=== PATIENT | female | born 1965 | race Caucasian/White ===

== ENCOUNTER → 2018-10-25 | Outpatient (CLI) | payer BC ==
[2018-10-25 11:16] VITALS: BP 129/83; PULSE 68; TEMP 97.1; BMI 35.4
--- NOTE | 2018-10-25 11:58 | P.HPOB ---
History of Present Illness H&P Date: 10/25/18 Chief Complaint: The patient is here for her routine gynecologic exam and mammogram. This is a 53-year-old within LMP of October 2017. She previously used cyclic Provera for several years because of polymenorrhea. She stopped the cyclic Provera in February 2016. She continued to have light periods up until October 2017. She states she has been amenorrheic for one year. She has occasional mild hot flashes. She is without gynecologic complaints. Review of Systems The patient has lost 13 pounds over the last year. She denies respiratory, cardiac, or G.I. problems. 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 History of Any Multi-Drug Resistant Organisms: None Reported Past Surgical History: Orthopedic Surgery (Knee surgery) Additional Past Surgical History / Comment(s): D&C. 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 Medications and Allergies Home Medications Medication Instructions Recorded Confirmed Type Calcium Carbonate/Vitamin D3 1 each PO 10/25/18 History [Caltrate 600 Plus D3 Tablet] Cholecalciferol (Vitamin D3) 2,000 unit PO DAILY 10/25/18 10/25/18 History [Vitamin D3] Multivitamin [Multivitamins Adult tab PO DAILY 10/25/18 History Gummies] Vit C/E/Zn/Coppr/Lutein/Zeaxan 1 each PO 10/25/18 History [Preservision Areds 2 Softgel] Allergies Allergy/AdvReac Type Severity Reaction Status Date / Time No Known Allergies Allergy Unverified 10/25/18 11:19 Exam Vital Signs Temp Pulse BP 10/25/18 10:55 97.1 F L 68 129/83 Intake and Output 10/24/18 10/25/18 10/25/18 22:59 06:59 14:59 Other: Weight 108.862 kg Height 5'9", weight 240 pounds, BMI 35.4. This is a well-developed well-nourished heavyset white female who is alert and oriented times 3 in no acute distress. HEENT: Within normal limits. NECK: Supple without mass or thyromegaly. CHEST AND LUNGS: Clear to auscultation. HEART: Regular rate and rhythm. BREASTS: Are without mass or discharge. AXILLARY EXAM: Negative for adenopathy. BACK: Negative for CVA tenderness. ABDOMEN: Soft, mildly obese, nontender, without palpable masses. PELVIC EXAM: Normal external genitalia. Cervix and vagina appear normal. There is no unusual discharge. There is no evidence of prolapse. The uterus is midposition, nongravid size and nontender. There are no palpable adnexal masses or tenderness. RECTAL EXAM: rectovaginal exam is negative for mass or tenderness and is negative for occult blood. EXTREMITIES: Nontender. IMPRESSION: 1. 53-year-old menopausal female with one year of amenorrhea and mild vasomotor symptoms. 2. Normal gynecologic exam. PLAN: 1. Pap smear was performed. 2. Self breast awareness was discussed with the patient. 3. Screening mammogram will be done today. 4. Osteoporosis prevention was discussed. I have stressed the importance of adequate calcium, vitamin D and regular exercise. Recommended amounts of calcium and vitamin D were also discussed. 5. I have recommended screening colonoscopy based on her age. She states she will be looking in to see Dr. Luther for this. Her mother had previously seen Dr. Luther. 6. She was instructed to call if she has any vaginal bleeding. 7. She will return in one year.
--- NOTE | 2018-10-28 12:50 | MM ---
Reason for exam: screening (asymptomatic). Last mammogram was performed 2 years and 7 months ago. History: Patient is postmenopausal and had first child at age 36. Family history of breast cancer in maternal aunt at age 67 and breast cancer in 2 maternal cousins. Taking progesterone for 2 years beginning at age 46. MG 3D Screening Mammo W/Cad Bilateral CC and MLO view(s) were taken. Prior study comparison: March 23, 2016, bilateral MG screening mammo w CAD. January 07, 2015, bilateral MG screening mammo w CAD. The breast tissue is heterogeneously dense. This may lower the sensitivity of mammography. No significant changes when compared with prior studies. ASSESSMENT: Negative, BI-RAD 1 RECOMMENDATION: Routine screening mammogram of both breasts in 1 year.
== END | disposition home or self-care (01) ==
LOC: WWCWWP 10:44
PROVIDERS: ATTEND Obstetrics & Gynecology
DX: Z12.31 Encounter for screening mammogram for malignant neoplasm of breast (principal)
CPT/HCPCS: 77063; 77067

== ENCOUNTER → 2021-09-01 | Outpatient (CLI) | payer BC ==
[2021-09-01 11:18] VITALS: BP 161/99; PULSE 79; RESP 18; TEMP 98.2
--- NOTE | 2021-09-01 12:28 | P.HPOB ---
History of Present Illness H&P Date: 09/01/21 Chief Complaint: The patient is here for her routine gynecologic exam and ma mmogram. This is a 56-year-old with an LMP of 2018. The patient is without gynecologic complaints and denies any postmenopausal bleeding. Review of Systems The patient has gained 36 pounds over the last year. She denies respiratory, cardiac, or G.I. problems. 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 History of Any Multi-Drug Resistant Organisms: None Reported Past Surgical History: Orthopedic Surgery Additional Past Surgical History / Comment(s): D&C. 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 Medications and Allergies Home Medications Medication Instructions Recorded Confirmed Type Calcium Carbonate/Vitamin D3 1 each PO DAILY 10/25/18 09/01/21 History [Caltrate 600 Plus D3 Tablet] Cholecalciferol (Vitamin D3) 2,000 unit PO DAILY 10/25/18 09/01/21 History [Vitamin D3] Multivitamin [Multivitamins Adult 1 tab PO DAILY 10/25/18 09/01/21 History Gummies] Ascorbic Acid [Vitamin C] 1,000 mg PO DAILY 09/01/21 09/01/21 History Cetirizine HCl [Zyrtec] 10 mg PO DAILY 09/01/21 09/01/21 History Allergies Allergy/AdvReac Type Severity Reaction Status Date / Time No Known Allergies Allergy Unverified 09/01/21 11:10 Exam Vital Signs Temp Pulse Resp BP Pulse Ox 09/01/21 11:14 98.2 F 79 18 161/99 99 Intake and Output 08/31/21 09/01/21 09/01/21 22:59 06:59 14:59 Other: Weight 125.191 kg Height 5 feet 8 inches, weight 276 pounds, BMI 42.0. This is a well-developed well-nourished heavyset white female who is alert and oriented times 3 in no acute distress. HEENT: Within normal limits. NECK: Supple without mass or thyromegaly. CHEST AND LUNGS: Clear to auscultation. HEART: Regular rate and rhythm. BREASTS: Are without mass or discharge. AXILLARY EXAM: Negative for adenopathy. BACK: Negative for CVA tenderness. ABDOMEN: Soft, nontender, without palpable masses. PELVIC EXAM: Normal external genitalia with mild atrophy. Cervix and vagina appear normal with mild atrophy. There is no unusual discharge. There is no evidence of prolapse. The uterus is midposition, nongravid size and nontender. There are no palpable adnexal masses or tenderness. Bimanual examination is somewhat limited secondary to her size. RECTAL EXAM: Rectovaginal exam is negative for mass or tenderness and is negative for occult blood. EXTREMITIES: Nontender. IMPRESSION: 1. 56-year-old menopausal female with normal gynecologic exam. 2. Elevated blood pressure. PLAN: 1. Pap smear cotest was performed. 2. Self breast awareness was discussed with the patient. We have also discussed symptoms associated with inflammatory breast cancer. 3. Screening mammogram will be done today. 4. We have discussed her elevated blood pressure. I have recommended that she check her own blood pressure on a regular basis and establish with and follow-up with PCP at pressure elevations. She states she has a PCP in mind that she will establish with. 5. Osteoporosis prevention was discussed. I have stressed the importance of adequate calcium, vitamin D and regular exercise. Recommended amounts of calcium and vitamin D were also discussed. 6. She has completed her Covid vaccination series. She states she did have Covid last year prior to her vaccinations. 7. I have recommended screening colonoscopy based on her age. After she establishes with her PCP, she will discuss colorectal cancer screening with her PCP. 8. She was advised to return in one year for her annual well woman exam.
--- NOTE | 2021-09-02 10:37 | MM ---
Reason for exam: screening (asymptomatic). Last mammogram was performed 2 years and 10 months ago. History: Patient is postmenopausal and had first child at age 36. Family history of breast cancer in maternal aunt at age 67 and breast cancer in 2 maternal cousins. Taking progesterone for 2 years beginning at age 46. Physical Findings: A clinical breast exam by your physician is recommended on an annual basis and results should be correlated with mammographic findings. MG 3D Screening Mammo W/Cad Bilateral CC and MLO view(s) were taken. Prior study comparison: October 25, 2018, bilateral MG 3d screening mammo w/cad. March 23, 2016, bilateral MG screening mammo w CAD. The breast tissue is heterogeneously dense. This may lower the sensitivity of mammography. Stable benign calcifications. There is no discrete abnormality. No significant changes when compared with prior studies. ASSESSMENT: Benign, BI-RAD 2 RECOMMENDATION: Routine screening mammogram of both breasts in 1 year.
== END ==
LOC: WWCWWP 10:58
PROVIDERS: ATTEND Obstetrics & Gynecology
DX: Z12.31 Encounter for screening mammogram for malignant neoplasm of breast (principal); Z01.419 Encounter for gynecological examination (general) (routine) without abnormal findings; R03.0 Elevated blood-pressure reading, without diagnosis of hypertension
CPT/HCPCS: 77063; 77067

== ENCOUNTER → 2024-08-14 | Outpatient (CLI) | payer BC ==
[2024-08-14 16:14] VITALS: BP 164/95; PULSE 88; RESP 17; TEMP 98.3
--- NOTE | 2024-08-14 16:54 | P.HPOB ---
History of Present Illness H&P Date: 08/14/24 Chief Complaint: The patient is here for her routine gynecologic exam and ma mmogram. This is a 67-year-old with an LMP of 2019. The patient is without gynecologic complaints and denies any postmenopausal bleeding. Review of Systems The patient has lost 10 pounds over the last year. She denies respiratory, cardiac, or G.I. problems. 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 History of Any Multi-Drug Resistant Organisms: None Reported Past Surgical History: Orthopedic Surgery Additional Past Surgical History / Comment(s): D&C. 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 Medications and Allergies Home Medications Medication Instructions Recorded Confirmed Type Cholecalciferol (Vitamin D3) 2,000 unit PO DAILY 10/25/18 08/14/24 History [Vitamin D3] Multivitamin [Multivitamins Adult 1 tab PO DAILY 10/25/18 08/14/24 History Gummies] Ascorbic Acid [Vitamin C] 1,000 mg PO DAILY 09/01/21 08/14/24 History Cetirizine HCl [Zyrtec] 10 mg PO DAILY 09/01/21 08/14/24 History Allergies Allergy/AdvReac Type Severity Reaction Status Date / Time No Known Allergies Allergy Unverified 08/14/24 16:10 Exam Vital Signs Temp Pulse Resp BP Pulse Ox 08/14/24 16:11 98.3 F 88 17 164/95 98 Intake and Output 08/14/24 08/14/24 08/14/24 06:59 14:59 22:59 Other: Weight 118.388 kg Height 5 feet 7 inches, weight 261 pounds, BMI 40.9. This is a well-developed well-nourished white female who is alert and oriented times 3 in no acute distress. HEENT: Within normal limits. NECK: Supple without mass or thyromegaly. CHEST AND LUNGS: Clear to auscultation. HEART: Regular rate and rhythm. BREASTS: Are without mass or discharge. AXILLARY EXAM: Negative for adenopathy. BACK: Negative for CVA tenderness. ABDOMEN: Soft, nontender, without palpable masses. PELVIC EXAM: Normal external genitalia with mild atrophy. The endocervix has 3 small polyps each measuring about 2 to 3 mm each. The ectocervix is normal with mild atrophy. These appear completely benign. There is no unusual discharge. There is no evidence of prolapse. The uterus is midposition, nongravid size and nontender. There are no palpable adnexal masses or tenderness. RECTAL EXAM: Rectovaginal exam is negative for mass or tenderness and is negative for occult blood. EXTREMITIES: Nontender. IMPRESSION: 1. 59-year-old menopausal female with small endocervical polyps that appear benign and measure approximately 2 to 3 mm each. 2. Elevated blood pressure. PLAN: 1. Pap smear was deferred since she had a negative Pap smear cotest on 09/01/2021. 2. Conservative management for the small endocervical polyps which appear benign. She was instructed to call if she has any postmenopausal bleeding or postcoital bleeding. 3. Self breast awareness was discussed with the patient. We have also discussed symptoms associated with inflammatory breast cancer. 4. Screening mammogram will be done today. 5. I have recommended that she establish with a primary care physician. She states she will probably establish with Dr. Christianson. I recommended that she check her own blood pressures on a regular basis and follow-up with a PCP for blood pressure elevations. 6. Osteoporosis prevention was discussed. I have stressed the importance of adequate calcium, vitamin D and regular exercise. Recommended amounts of calcium and vitamin D were also discussed. I have recommended bone density testing and this would be a baseline study. She would like to do it next year at the time of her annual well woman examination. 7. She was advised to return in one year for her annual well woman exam and as needed.
== END ==
LOC: WWCWWP 15:42
PROVIDERS: ATTEND Obstetrics & Gynecology
DX: Z12.31 Encounter for screening mammogram for malignant neoplasm of breast (principal); N84.1 Polyp of cervix uteri; R03.0 Elevated blood-pressure reading, without diagnosis of hypertension; Z78.0 Asymptomatic menopausal state; Z79.899 Other long term (current) drug therapy
CPT/HCPCS: 77063; 77067